=== PATIENT | female | born 1950 | race Caucasian/White ===

== ENCOUNTER → 2016-10-25 | Outpatient (CLI) | payer OTHER ==
[~2016-10-25] MED LIST: ALBUTEROL2.5 MG/3 M IH; DIPROLENE0.05% TP; FLONASE NASAL S16 GM NS; OMEGA 31000 MG PO; PROVENTIL0.09 MG/Ac IH; SYNTHROID0.05 MG PO; TESSALON PERLE100 MG PO; VITAMIN D5000 IU PO
== END ==
LOC: RAD 16:35
DX: M79.605 Pain in left leg (principal); M25.462 Effusion, left knee

== ENCOUNTER → 2017-01-09 | Outpatient (CLI) | payer OTHER, MEDICARE ==
[2013-04-12 01:25] VITALS: BP 140/76
== END ==
LOC: RAD 12:46
DX: M79.605 Pain in left leg (principal); M17.12 Unilateral primary osteoarthritis, left knee; M22.42 Chondromalacia patellae, left knee; M25.462 Effusion, left knee

== ENCOUNTER → 2017-03-30 | Outpatient (CLI) | payer OTHER, MEDICARE ==
[2013-04-12 01:25] VITALS: BP 140/76
== END ==
LOC: LAB 07:06
DX: Z00.00 Encounter for general adult medical examination without abnormal findings (principal); E03.4 Atrophy of thyroid (acquired); E78.2 Mixed hyperlipidemia

== ENCOUNTER → 2017-07-18 | Outpatient (CLI) | payer MEDICARE, OTHER ==
[2013-04-12 01:25] VITALS: BP 140/76
== END ==
LOC: MAMMO 14:31
DX: Z12.31 Encounter for screening mammogram for malignant neoplasm of breast (principal)
CPT/HCPCS: G0202

== ENCOUNTER → 2018-01-08 | Outpatient (CLI) | payer MEDICARE, OTHER ==
[2013-04-12 01:25] VITALS: BP 140/76
== END ==
LOC: RAD 10:52
DX: R60.9 Edema, unspecified (principal); M79.605 Pain in left leg

== ENCOUNTER → 2018-03-16 | Outpatient (CLI) | payer MEDICARE, OTHER ==
[2013-04-12 01:25] VITALS: BP 140/76
[2018-03-16 08:04] LABS: BASO # 0.1 (0.02-0.10); EOS # 0.3 (0.04-0.40); EOS % 4.9 % (1.0-5.0); HEMATOCRIT 44.5 % (37.0-47.0); HEMOGLOBIN 14.8 g/dL (12.5-16.0); MEAN CELL VOLUME 88 fl (78-100); MEAN CORPUSCULAR HEMOGLOBIN 29 pg (27-31); MEAN CORPUSCULAR HGB CONC 33 g/dL (33-37); MEAN PLATELET VOLUME 11.3 fl (7.4-10.4); MONO # 0.5 (0.20-0.80); NEU # 2.7 (1.40-6.50); PLATELET COUNT 259 K/mm3 (130-400); RED BLOOD COUNT 5.07 M/mm3 (4.10-5.30); RED CELL DISTRIBUTION WIDTH 12.6 % (11.5-14.5); WHITE BLOOD COUNT 5.5 K/mm3 (4.8-10.8)
[2018-03-16 08:18] LABS: ALBUMIN 4.3 g/dL (3.5-5.0); BUN/CREATININE RATIO 20.3 (6.0-26.0); CALCIUM 9.1 mg/dL (8.4-10.2); TOTAL BILIRUBIN 0.7 mg/dL (0.2-1.3); TOTAL PROTEIN 7.4 g/dL (6.3-8.2)
== END ==
LOC: LAB 07:48
PROVIDERS: Nurse Practitioner Family
DX: Z00.00 Encounter for general adult medical examination without abnormal findings (principal); E78.2 Mixed hyperlipidemia; E03.4 Atrophy of thyroid (acquired)

== ENCOUNTER → 2018-07-26 | Outpatient (CLI) | payer MEDICARE, OTHER ==
[2013-04-12 01:25] VITALS: BP 140/76
== END ==
LOC: MAMMO 09:12
DX: Z12.31 Encounter for screening mammogram for malignant neoplasm of breast (principal)

== ENCOUNTER → 2018-09-20 | Outpatient (CLI) | payer MEDICARE, OTHER ==
[~2018-09-20] VITALS: Ht 165.1 cm; Wt 105.9 kg
[2018-09-20 14:40] LABS: BASO # 0.1 (0.02-0.10); EOS # 0.2 (0.04-0.40); EOS % 2.5 % (1.0-5.0); HEMATOCRIT 43.2 % (37.0-47.0); HEMOGLOBIN 13.9 g/dL (12.5-16.0); LYMPH# 2.4 (1.50-4.00); MEAN CELL VOLUME 88 fl (78-100); MEAN CORPUSCULAR HEMOGLOBIN 28 pg (27-31); MEAN CORPUSCULAR HGB CONC 32 g/dL (33-37); MEAN PLATELET VOLUME 11.8 fl (7.4-10.4); MONO # 0.5 (0.20-0.80); NEU # 3.4 (1.40-6.50); PLATELET COUNT 262 K/mm3 (130-400); RED CELL DISTRIBUTION WIDTH 12.4 % (11.5-14.5); WHITE BLOOD COUNT 6.5 K/mm3 (4.8-10.8)
[2018-09-20 14:45] LABS: ALBUMIN 4.3 g/dL (3.5-5.0); CALCIUM 9.6 mg/dL (8.4-10.2); POTASSIUM 3.6 mmol/L (3.6-5.0); TOTAL BILIRUBIN 0.3 mg/dL (0.2-1.3); TOTAL PROTEIN 7.3 g/dL (6.3-8.2)
[2018-09-20 14:54] VITALS: BP 149/85
== END ==
LOC: LAB 14:14
PROVIDERS: Orthopaedic Surgery
DX: Z01.818 Encounter for other preprocedural examination (principal)

== ENCOUNTER → 2018-09-26 | Outpatient (CLI) | payer MEDICARE, OTHER ==
[2018-09-20 14:54] VITALS: BP 149/85
[2018-09-26 10:12] LABS: PH-URINE 6.5 (5.0 - 8.0); URINE APPEARANCE CLEAR; URINE BILIRUBIN NEGATIVE (NEGATIVE); URINE BLOOD TRACE (NEGATIVE); URINE COLOR YELLOW; URINE GLUCOSE NEGATIVE (NEGATIVE); URINE KETONE NEGATIVE (NEGATIVE); URINE LEUKOCYTE ESTERASE NEGATIVE (NEGATIVE); URINE MUCUS PRESENT (NOT PRESENT); URINE NITRATE NEGATIVE (NEGATIVE); URINE PROTEIN(semi-quant) 1+ mg/dL (NEGATIVE); URINE UROBILINOGEN NORMAL (NORMAL)
== END ==
LOC: LAB 08:17
PROVIDERS: Family Medicine
DX: Z01.812 Encounter for preprocedural laboratory examination (principal)

== ENCOUNTER → 2019-02-09 | Outpatient (CLI) | payer MEDICARE, OTHER ==
[~2019-02-09] VITALS: Ht 165.1 cm; Wt 105.9 kg
[~2019-02-09] MED LIST changes: +LEVOTHYROXIN0.075 MG PO
[2019-02-09 08:18] VITALS: BP 164/91
[2019-02-09 09:50] VITALS: BP 166/87
[2019-02-09 10:00] LABS: HEMATOCRIT 45.6 % (37.0-47.0); HEMOGLOBIN 14.9 g/dL (12.5-16.0); RED BLOOD COUNT 5.3 M/mm3 (4.10-5.30); RED CELL DISTRIBUTION WIDTH 12.9 % (11.5-14.5); WHITE BLOOD COUNT 8.1 K/mm3 (4.8-10.8)
[2019-02-09 10:01] LABS: MEAN PLATELET VOLUME 12.3 fl (7.4-10.4)
[2019-02-09 10:05] LABS: ALBUMIN 4.2 g/dL (3.4-4.8); POTASSIUM 3.9 mmol/L (3.5-5.1)
[2019-02-09 10:06] LABS: CALCIUM 9.9 mg/dL (8.3-10.5)
[2019-02-09 10:07] LABS: TOTAL PROTEIN 7.7 g/dL (6.2-8.1)
[2019-02-09 10:09] LABS: TOTAL BILIRUBIN 0.5 mg/dL (0.2-1.2)
== END ==
LOC: LAB 07:57
PROVIDERS: Nurse Practitioner
DX: N39.0 Urinary tract infection, site not specified (principal); M54.9 Dorsalgia, unspecified; R30.0 Dysuria; R31.9 Hematuria, unspecified
CPT/HCPCS: A4216; J0696; J1885; J7030

== ENCOUNTER → 2019-04-01 | Outpatient (CLI) | payer MEDICARE, OTHER ==
[2019-02-09 09:50] VITALS: BP 166/87
[2019-04-01 09:12] LABS: ALBUMIN 4.2 g/dL (3.4-4.8); BASO # 0.1 (0.02-0.10); EOS # 0.2 (0.04-0.40); EOS % 3.6 % (1.0-5.0); HEMATOCRIT 43.4 % (37.0-47.0); HEMOGLOBIN 14.4 g/dL (12.5-16.0); LYMPH# 1.7 (1.50-4.00); MEAN CELL VOLUME 87 fl (78-100); MEAN CORPUSCULAR HEMOGLOBIN 29 pg (27-31); MEAN CORPUSCULAR HGB CONC 33 g/dL (33-37); MEAN PLATELET VOLUME 11.8 fl (7.4-10.4); MONO # 0.4 (0.20-0.80); NEU # 2.4 (1.40-6.50); PLATELET COUNT 252 K/mm3 (130-400); POTASSIUM 4.1 mmol/L (3.5-5.1); RED BLOOD COUNT 4.97 M/mm3 (4.10-5.30); WHITE BLOOD COUNT 4.8 K/mm3 (4.8-10.8)
[2019-04-01 09:13] LABS: CALCIUM 9.8 mg/dL (8.3-10.5)
[2019-04-01 09:16] LABS: TOTAL BILIRUBIN 0.6 mg/dL (0.2-1.2)
== END ==
LOC: LAB 08:49
PROVIDERS: Family Medicine
DX: Z00.00 Encounter for general adult medical examination without abnormal findings (principal); E78.5 Hyperlipidemia, unspecified; E03.4 Atrophy of thyroid (acquired)

== ENCOUNTER → 2019-08-06 | Outpatient (CLI) | payer MEDICARE, OTHER ==
[2019-02-09 09:50] VITALS: BP 166/87
== END ==
LOC: MAMMO 07-30 10:45
DX: Z12.31 Encounter for screening mammogram for malignant neoplasm of breast (principal)

== ENCOUNTER → 2019-09-27 | Outpatient (CLI) | payer MEDICARE, OTHER ==
[2019-02-09 09:50] VITALS: BP 166/87
[2019-09-27 09:12] LABS: EOS # 0.2 (0.04-0.40); HEMATOCRIT 44.8 % (37.0-47.0); HEMOGLOBIN 14.8 g/dL (12.5-16.0); LYMPH# 1.9 (1.50-4.00); MEAN CELL VOLUME 88 fl (78-100); MEAN CORPUSCULAR HEMOGLOBIN 29 pg (27-31); MEAN CORPUSCULAR HGB CONC 33 g/dL (33-37); MEAN PLATELET VOLUME 11.5 fl (7.4-10.4); MONO # 0.5 (0.20-0.80); NEU # 3.1 (1.40-6.50); PLATELET COUNT 262 K/mm3 (130-400); RED BLOOD COUNT 5.07 M/mm3 (4.10-5.30); RED CELL DISTRIBUTION WIDTH 12.6 % (11.5-14.5); WHITE BLOOD COUNT 5.7 K/mm3 (4.8-10.8)
[2019-09-27 09:28] LABS: ALBUMIN 4.3 g/dL (3.4-4.8); POTASSIUM 3.9 mmol/L (3.5-5.1)
[2019-09-27 09:29] LABS: CALCIUM 9.2 mg/dL (8.3-10.5)
[2019-09-27 09:30] LABS: TOTAL PROTEIN 7.7 g/dL (6.2-8.1)
[2019-09-27 09:32] LABS: TOTAL BILIRUBIN 0.4 mg/dL (0.2-1.2)
== END ==
LOC: AMSURD 08:55
PROVIDERS: Orthopaedic Surgery
DX: Z01.818 Encounter for other preprocedural examination (principal); M19.90 Unspecified osteoarthritis, unspecified site

== ENCOUNTER → 2019-10-01 | Outpatient (CLI) | payer MEDICARE, OTHER ==
[2019-02-09 09:50] VITALS: BP 166/87
[2019-10-01 10:17] LABS: URINE APPEARANCE CLEAR; URINE BILIRUBIN NEGATIVE (NEGATIVE); URINE BLOOD TRACE (NEGATIVE); URINE COLOR YELLOW; URINE GLUCOSE NEGATIVE (NEGATIVE); URINE KETONE NEGATIVE (NEGATIVE); URINE LEUKOCYTE ESTERASE NEGATIVE (NEGATIVE); URINE MUCUS PRESENT (NOT PRESENT); URINE NITRATE NEGATIVE (NEGATIVE); URINE PROTEIN(semi-quant) TRACE mg/dL (NEGATIVE); URINE UROBILINOGEN NORMAL (NORMAL)
== END ==
LOC: LAB 09:52
PROVIDERS: Family Medicine
DX: Z01.818 Encounter for other preprocedural examination (principal); M19.90 Unspecified osteoarthritis, unspecified site

== ENCOUNTER → 2020-11-27 | Outpatient (CLI) | payer MEDICARE ==
[2019-02-09 09:50] VITALS: BP 166/87
[~2020-11-27] MED LIST changes: +MORGIDOX 1X100100 MG PO; +PREDNISONE20 M1 PO; +PROAIR DIGIHAL90 MCG IH
[2020-11-27 12:47] LABS: BASO # 0.1 (0.02-0.10); EOS # 0.2 (0.04-0.40); EOS % 2.9 % (1.0-5.0); HEMATOCRIT 44.1 % (37.0-47.0); HEMOGLOBIN 14.3 g/dL (12.5-16.0); LYMPH# 1.9 (1.50-4.00); MEAN CELL VOLUME 90 fl (78-100); MEAN CORPUSCULAR HEMOGLOBIN 29 pg (27-31); MEAN CORPUSCULAR HGB CONC 32 g/dL (33-37); MEAN PLATELET VOLUME 11.4 fl (7.4-10.4); MONO # 0.6 (0.20-0.80); NEU # 4.1 (1.40-6.50); PLATELET COUNT 279 K/mm3 (130-400); RED BLOOD COUNT 4.93 M/mm3 (4.10-5.30); RED CELL DISTRIBUTION WIDTH 12.6 % (11.5-14.5)
[2020-11-27 12:54] LABS: ALBUMIN 4.2 g/dL (3.4-4.8); POTASSIUM 4.1 mmol/L (3.5-5.1)
[2020-11-27 12:55] LABS: CALCIUM 9.4 mg/dL (8.3-10.5)
[2020-11-27 12:56] LABS: TOTAL PROTEIN 7.3 g/dL (6.2-8.1)
[2020-11-27 12:58] LABS: TOTAL BILIRUBIN 0.4 mg/dL (0.2-1.2)
== END ==
LOC: RAD 12:17
PROVIDERS: Family Medicine
DX: R06.00 Dyspnea, unspecified (principal)

== ENCOUNTER 2021-04-06 10:33 | Emergency (ER) | payer MEDICARE ==
[~2021-04-06] VITALS: Ht 165.1 cm; Wt 108.0 kg
[~2021-04-06 10:33] MED LIST changes: -MORGIDOX 1X100100 MG PO; -PREDNISONE20 M1 PO; -PROAIR DIGIHAL90 MCG IH
[2021-04-06 11:20] LABS: BASO # 0.02 (0.02-0.10); EOS # 0.04 (0.04-0.40); EOS % 0.7 % (1.0-5.0); HEMATOCRIT 46.8 % (37.0-47.0); HEMOGLOBIN 15.4 g/dL (12.5-16.0); LYMPH# 1.39 (1.50-4.00); MEAN CELL VOLUME 87 fl (78-100); MEAN CORPUSCULAR HEMOGLOBIN 29 pg (27-31); MEAN CORPUSCULAR HGB CONC 33 g/dL (33-37); MEAN PLATELET VOLUME 11.8 fl (7.4-10.4); MONO # 0.59 (0.20-0.80); NEU # 3.77 (1.40-6.50); PLATELET COUNT 293 K/mm3 (130-400); RED BLOOD COUNT 5.36 M/mm3 (4.10-5.30); WHITE BLOOD COUNT 5.8 K/mm3 (4.8-10.8)
[2021-04-06 11:22] LABS: ALBUMIN 3.5 g/dL (3.4-4.8); POTASSIUM 3.3 mmol/L (3.5-5.1); SODIUM 141 mmol/L (136-145)
[2021-04-06 11:24] LABS: CALCIUM 9.2 mg/dL (8.3-10.5)
[2021-04-06 11:25] LABS: GLUCOSE 117 mg/dL (65-105); TOTAL PROTEIN 7.2 g/dL (6.2-8.1)
[2021-04-06 11:26] LABS: CARBON DIOXIDE 26 mmol/L (23-31)
[2021-04-06 11:27] LABS: TOTAL BILIRUBIN 0.6 mg/dL (0.2-1.2)
[2021-04-06 11:30] LABS: AST-SGOT 18 U/L (5-34)
[2021-04-06 11:31] LABS: ALT/SGPT 25 U/L (0-55)
[2021-04-06 11:32] LABS: PARTIAL THROMBOPLASTIN TIME 20.6 SECONDS (21.0-32.0); PROTHROMBIN TIME 10.7 SECONDS (9.0-12.0)
[2021-04-06 11:36] LABS: D-DIMER 1.16 mg/L FEU (0.15-0.50)
[2021-04-06 11:43] LABS: TROPONIN-I < 0.03 ng/mL (<0.030)
[2021-04-06 14:09] LABS: URINE APPEARANCE HAZY; URINE BILIRUBIN NEGATIVE (NEGATIVE); URINE BLOOD NEGATIVE (NEGATIVE); URINE COLOR YELLOW; URINE GLUCOSE NEGATIVE (NEGATIVE); URINE KETONE NEGATIVE (NEGATIVE); URINE LEUKOCYTE ESTERASE NEGATIVE (NEGATIVE); URINE NITRATE NEGATIVE (NEGATIVE); URINE PROTEIN(semi-quant) TRACE mg/dL (NEGATIVE); URINE UROBILINOGEN NORMAL (NORMAL)
[2021-04-06 15:55] VITALS: BP 156/91
[2021-04-06] MEDS ORDERED: PROAIR DIGIHAL90 MCG IH (16:01)
[2021-04-06] MEDS ORDERED: MORGIDOX 1X100100 MG PO (16:01)
[2021-04-06] MEDS ORDERED: PREDNISONE20 M1 PO (16:01)
== END 2021-04-06 16:23 | disposition left against medical advice (07) ==
LOC: ED 10:33
PROVIDERS: Nurse Practitioner
DX: U07.1 COVID-19 (principal); E66.9 Obesity, unspecified
CPT/HCPCS: J1100; Q9967

== ENCOUNTER → 2021-12-13 | Outpatient (CLI) | payer MEDICARE ==
[~2021-12-13] MED LIST changes: +MORGIDOX 1X100100 MG PO; +PREDNISONE20 M1 PO; +PROAIR DIGIHAL90 MCG IH
[2021-12-13 10:29] LABS: BASO # 0.06 K/mm3 (0.02-0.10); EOS # 0.25 K/mm3 (0.04-0.40); EOS % 4.1 % (1.0-5.0); HEMATOCRIT 45.1 % (37.0-47.0); HEMOGLOBIN 14.7 g/dL (12.5-16.0); LYMPH# 2.18 K/mm3 (1.50-4.00); MEAN CELL VOLUME 89 fl (78-100); MEAN CORPUSCULAR HEMOGLOBIN 29 pg (27-31); MEAN CORPUSCULAR HGB CONC 33 g/dL (33-37); MEAN PLATELET VOLUME 11.4 fl (7.4-10.4); MONO # 0.44 K/mm3 (0.20-0.80); NEU # 3.12 K/mm3 (1.40-6.50); PLATELET COUNT 269 K/mm3 (130-400); RED BLOOD COUNT 5.05 M/mm3 (4.10-5.30); RED CELL DISTRIBUTION WIDTH 12.2 % (11.5-14.5); WHITE BLOOD COUNT 6.1 K/mm3 (4.8-10.8)
[2021-12-13 10:31] LABS: ALBUMIN 4.2 g/dL (3.4-4.8); POTASSIUM 3.9 mmol/L (3.5-5.1)
[2021-12-13 10:32] LABS: CALCIUM 10.1 mg/dL (8.3-10.5)
[2021-12-13 10:33] LABS: TOTAL PROTEIN 7.3 g/dL (6.2-8.1)
[2021-12-13 10:35] LABS: TOTAL BILIRUBIN 0.6 mg/dL (0.2-1.2)
== END ==
LOC: LAB 09:44
PROVIDERS: Family Medicine
DX: Z00.00 Encounter for general adult medical examination without abnormal findings (principal); Z12.31 Encounter for screening mammogram for malignant neoplasm of breast; E03.4 Atrophy of thyroid (acquired); E78.5 Hyperlipidemia, unspecified; E66.9 Obesity, unspecified; M19.90 Unspecified osteoarthritis, unspecified site; F41.1 Generalized anxiety disorder; E55.9 Vitamin D deficiency, unspecified

== ENCOUNTER → 2021-12-21 | Outpatient (CLI) | payer MEDICARE | LOC: MAMMO 08:17 | DX: Z12.31 Encounter for screening mammogram for malignant neoplasm of breast (principal) ==

== ENCOUNTER → 2022-11-24 | Outpatient (CLI) | payer MEDICARE ==
[2022-11-24 10:02] LABS: URINE APPEARANCE CLOUDY; URINE BILIRUBIN NEGATIVE (NEGATIVE); URINE BLOOD 250 ery/uL (NEGATIVE); URINE COLOR RED; URINE GLUCOSE NEGATIVE (NEGATIVE); URINE KETONE NEGATIVE (NEGATIVE); URINE LEUKOCYTE ESTERASE 2+ (NEGATIVE); URINE NITRATE POSITIVE (NEGATIVE); URINE PROTEIN(semi-quant) 3+ (NEGATIVE); URINE UROBILINOGEN NORMAL (NORMAL); URINE WBC 16-30 /hpf (0-3)
== END ==
LOC: LAB 08:37
PROVIDERS: Nurse Practitioner
DX: R30.0 Dysuria (principal)

== ENCOUNTER → 2023-06-19 | Outpatient (CLI) | payer MEDICARE ==
[2023-06-19 13:45] LABS: URINE APPEARANCE HAZY; URINE BILIRUBIN NEGATIVE (NEGATIVE); URINE BLOOD 50 ery/uL (NEGATIVE); URINE COLOR YELLOW; URINE GLUCOSE NEGATIVE (NEGATIVE); URINE KETONE NEGATIVE (NEGATIVE); URINE LEUKOCYTE ESTERASE TRACE (NEGATIVE); URINE NITRATE NEGATIVE (NEGATIVE); URINE PROTEIN(semi-quant) TRACE (NEGATIVE); URINE UROBILINOGEN NORMAL (NORMAL)
== END ==
LOC: LAB 13:00
PROVIDERS: Family Medicine
DX: N39.0 Urinary tract infection, site not specified (principal)

== ENCOUNTER → 2024-02-26 | Outpatient (CLI) | payer MEDICARE | LOC: MAMMO 15:23 | DX: Z12.31 Encounter for screening mammogram for malignant neoplasm of breast (principal) ==

== ENCOUNTER → 2024-04-12 | Outpatient (CLI) | payer MEDICARE ==
[2024-04-12 16:16] LABS: D-DIMER 0.45 mg/L FEU (0.15-0.50)
== END ==
LOC: LAB 15:34
PROVIDERS: Nurse Practitioner
DX: E03.4 Atrophy of thyroid (acquired) (principal); M79.661 Pain in right lower leg

== ENCOUNTER → 2024-11-13 | Outpatient (CLI) | payer MEDICARE ==
[2024-11-13 09:43] LABS: BASO # 0.02 K/mm3 (0.02-0.10); EOS # 0.17 K/mm3 (0.04-0.40); EOS % 2.8 % (1.0-5.0); HEMATOCRIT 46.2 % (37.0-47.0); HEMOGLOBIN 15.2 g/dL (12.5-16.0); LYMPH# 2.07 K/mm3 (1.50-4.00); MEAN CELL VOLUME 89 fl (78-100); MEAN CORPUSCULAR HEMOGLOBIN 29 pg (27-31); MEAN CORPUSCULAR HGB CONC 33 g/dL (33-37); MEAN PLATELET VOLUME 11.2 fl (7.4-10.4); MONO # 0.43 K/mm3 (0.20-0.80); NEU # 3.33 K/mm3 (1.40-6.50); PLATELET COUNT 243 K/mm3 (130-400); RED BLOOD COUNT 5.18 M/mm3 (4.10-5.30); RED CELL DISTRIBUTION WIDTH 12.1 % (11.5-14.5)
[2024-11-13 09:49] LABS: ALBUMIN 4.2 g/dL (3.4-4.8)
[2024-11-13 09:51] LABS: CALCIUM 9.6 mg/dL (8.3-10.5)
[2024-11-13 09:52] LABS: TOTAL PROTEIN 7.4 g/dL (6.2-8.1)
[2024-11-13 09:54] LABS: TOTAL BILIRUBIN 0.5 mg/dL (0.2-1.2)
== END ==
LOC: LAB 09:13
PROVIDERS: Family Medicine
DX: E03.4 Atrophy of thyroid (acquired) (principal)